=== PATIENT | male | born 1990 | race Caucasian/White ===

== ENCOUNTER 2023-11-06 17:30 | Inpatient (IN) ==
[2023-11-06 18:15] LABS: Hematocrit 44.8 % (38-53); Mean Corpuscular Hemoglobin 28.5 pg (27-33); Mean Corpuscular Hgb Conc 33.5 g/dL (31-36); Mean Corpuscular Volume 84.9 fL (80-97); Platelet Count 196 10^3/uL (150-450); Red Blood Count 5.28 10^6/uL (4.06-5.63); Red Cell Distribution Width 12.8 % (12-17); White Blood Count 25.4 10^3/uL (3.6-10.2)
[2023-11-06] MEDS: Lactated Ringers 1000 ml BAG 1,000 ML IV ONE (18:44)
[2023-11-06 18:47] LABS: ALT 19 U/L (7-52); AST 25 U/L (13-39); Albumin 4.6 g/dL (3.2-5.2); Albumin/Globulin Ratio 1.5 (1-3); Alkaline Phosphatase 50 U/L (35-149); Anion Gap 9 mmol/L (2-16); Blood Urea Nitrogen 10 mg/dL (6-24); C Reactive Protein 349.11 mg/L (<8.01); CO2 Carbon Dioxide 27 mmol/L (22-32); Calcium 9.7 mg/dL (8.6-10.3); Chloride 96 mmol/L (101-111); Creatinine, Serum 1.22 mg/dL (0.67-1.17); Globulin 3.1 g/dL (2-4); Glucose 103 mg/dL (70-100); Lipase < 10 U/L (11.0-82.0); Potassium 4.2 mmol/L (3.5-5.0); Sodium 132 mmol/L (135-145); Total Protein 7.7 g/dL (6.4-8.9); eGFR CKD-EPI 81.3 (>60)
[2023-11-06 18:59] LABS: Urine Appearance Clear; Urine Bilirubin Negative (Negative); Urine Blood Trace (Negative); Urine Color Yellow; Urine Glucose Negative (Negative); Urine Ketones 2+ (Negative); Urine Nitrite Negative (Negative); Urine Protein 1+ (>=30 mg/dL) (Negative); Urine Specific Gravity 1.028 (1.002-1.030); Urine Urobilinogen Negative (Negative)
[2023-11-06 19:01] LABS: Urine Bacteria Absent /HPF (Absent); Urine Red Blood Cell Trace(0-2/hpf) /HPF (0-Trace); Urine White Blood Cell Trace(0-5/hpf) /HPF (0-Trace)
[2023-11-06] MEDS: Iohexol 300 (CONTRAST) 10 ML SDV IV ONE (19:05)
[2023-11-06 19:23] LABS: ABS Basophils 0.1 10^3/uL (0.0-0.1); ABS Lymphocytes 1.6 10^3/uL (1.0-4.8); ABS Neutrophils 21.6 10^3/uL (1.5-7.6); Eosinophil % 0.1 %; Lymphocyte % 6.4 %; RBC Morphology Normal (Normal)
[2023-11-06] MEDS: NS 0.9% 1000 ml BAG 1,000 ML IV ONE (19:58)
[2023-11-06] MEDS: cefTRIAXone 1 gm/50 mL D5W 1 GM/50 ML BAG IV ONE (20:00)
[2023-11-06] MEDS: metroNIDAZOLE IV 500 MG/100ML 500 MG/100 ML BAG IVPB ONE (20:46)
[2023-11-06] MEDS ORDERED: HYDROmorphone 0.5 MG/0.5 ML SYRINGE IV SLOW PU PRN (21:58)
[2023-11-06] MEDS: D5W 1/2 NS KCl 20 meq 1000 ml 1,000 ML IV SCH (22:10)
[2023-11-06] MEDS: Acetaminophen IV 1 GM/100ML 1,000 MG/100 ML BAG IV ONE (22:16)
[2023-11-06] MEDS ORDERED: Bupivacaine 0.25% w/EPI 10 ML SDV ONE ×2 (22:38→23:00)
[2023-11-06] MEDS ORDERED: Naloxone 0.4 mg VIAL 0.4 mg/ml 1 ml VIAL IV PRN (23:09)
[2023-11-06] MEDS ORDERED: Lidocaine 2% PF 5 ML VIAL ONE (23:14)
[2023-11-06] MEDS ORDERED: Propofol 10 MG/ML 20 ML BTL ONE (23:14)
[2023-11-06] MEDS ORDERED: Rocuronium 50 mg VIAL 10 mg/ml 5 ml VIAL (50 mg) ONE (23:16)
[2023-11-06] MEDS ORDERED: fentaNYL 100 mcg/2 ml 50 MCG/ML VIAL ONE (23:51)
[2023-11-07] MEDS ORDERED: Phenylephrine IV 10 MG/ML 1 ml VIAL ONE (00:09)
[2023-11-07] MEDS ORDERED: Dexamethasone IV 4 MG/ML VIAL 1 ml VIAL ONE (00:17)
[2023-11-07] MEDS ORDERED: Rocuronium 50 mg VIAL 10 mg/ml 5 ml VIAL (50 mg) ONE (00:32)
[2023-11-07] MEDS ORDERED: Ondansetron 4 mg VIAL 2 MG/ML 2 ml VIAL ONE ×2 (00:41→01:05)
[2023-11-07] MEDS ORDERED: fentaNYL 100 mcg/2 ml 50 MCG/ML VIAL ONE (01:05)
[2023-11-07] MEDS: fentaNYL 100 mcg/2 ml 50 MCG/ML VIAL IV PRN (01:12)
[2023-11-07] MEDS: Ondansetron 4 mg VIAL 2 MG/ML 2 ml VIAL IV PRN (01:12)
[2023-11-07] MEDS ORDERED: Naloxone 0.4 mg VIAL 0.4 mg/ml 1 ml VIAL IV PRN (01:23)
[2023-11-07] MEDS: oxyCODONE/Acetamin 5/325 mg TAB PO PRN (03:04)
[2023-11-07] MEDS: Buffered Lidocaine 1% SYRIN 1 ml INTRADERM ONE (03:49)
[2023-11-07] MEDS: Lactated Ringers 1000 ml BAG 1,000 ML IV SCH (03:49)
[2023-11-07] MEDS: Sodium Citrate/Citric Acid LIQ 15 ML UDC PO ONE (03:49)
[2023-11-07] MEDS: metroNIDAZOLE IV 500 MG/100ML 500 MG/100 ML BAG IVPB SCH (04:36)
[2023-11-07 10:11] VITALS: BP 105/61
[2023-11-07] MEDS ORDERED: cefTRIAXone 1 gm/50 mL D5W 1 GM/50 ML BAG IV SCH (20:00)
== END 2023-11-07 13:40 | disposition home or self-care (01) | DRG 399 ==
LOC: ED 17:30 → EDHOLD 21:58 → SSU 11-07 02:21
PROVIDERS: ADMIT Surgery; ATTEND Surgery